=== PATIENT | male | born 1950 | race Hispanic/Latino ===

== ENCOUNTER 2018-09-29 13:22 | Inpatient (IN) | payer MEDICARE, SELFPAY ==
[2018-09-29 13:47] LABS: #Eosinphils 0.2 thou/uL (0.0-0.7); #Lymphocytes 1.3 thou/uL (1.20-3.40); #Monocytes 0.4 thou/uL (0.11-0.59); #Neutrophils 5.8 thou/uL (1.40-6.50); %Basophils 0.2 % (0.0-1.0); %Eosinophils 2.8 % (0.0-10.0); %Lymphocytes 16.8 % (21.0-51.0); %Monocytes 5.7 % (0.0-10.0); %Neutrophils 74.5 % (42.0-75.0); Mean Corpuscular Hemoglobin 28.7 pg (27.0-31.0); Mean Corpuscular Volume 87.1 fL (78.0-98.0); Mean Platelet Volume 8.1 fL (7.4-10.4); Platelet Count 304 thou/uL (130-400); Red Blood Cell (RBC) Count 4.89 mill/uL (4.70-6.10); White Blood Cell (WBC) Count 7.8 thou/uL (4.8-10.8)
[2018-09-29 14:05] LABS: ALT (SGPT) 16 U/L (8-55); AST (SGOT) 16 U/L (5-34); Albumin 3.7 g/dL (3.4-4.8); Alkaline Phosphatase 133 U/L (40-150); Anion Gap 11 mmol/L (10-20); BUN (Urea Nitrogen) 14 mg/dL (8.4-25.7); Bilirubin, Total 0.4 mg/dL (0.2-1.2); CK (CPK) 154 U/L (30-200); Calc. Creatinine Clearance 0 mL/min (70-130); Calcium 8.7 mg/dL (7.8-10.44); Carbon Dioxide 25 mmol/L (23-31); Chloride 101 mmol/L (98-107); Estimated GFR-MDRD 88; Globulin 3.8 g/dL (2.4-3.5); Glucose 272 mg/dL (80-115); Potassium 4.4 mmol/L (3.5-5.1); Protein, Total 7.5 g/dL (5.8-8.1); Sodium 133 mmol/L (136-145)
[2018-09-29] MEDS ORDERED: Metoclopramide HCl 10 MG/2 ML VIAL ONE (14:11)
--- NOTE | 2018-09-29 14:46 | RAD ---
PORTABLE CHEST ONE VIEW: Date: 09-29-18 Time: 2:08 p.m. History: Headache, vomiting. FINDINGS/IMPRESSION: The heart size is borderline. Mild infiltrates are seen in the lung bases which may be acute or chron ic. No lobar consolidation, pneumothoraces, or large effusions are seen. POS: [facility]
--- NOTE | 2018-09-29 15:12 | CT ---
CT BRAIN WITHOUT CONTRAST: History: Dizziness. Lightheadedness, nausea, vomiting. FINDINGS: There are no previous exams for comparison. No evidence of infarct, hemorrhage, midline shift, or abn ormal extraaxial fluid collections are seen. The ventricular size is appropriate and the basal cister ns patent. The bony calvarium is intact. There is extensive mucosal disease in the left maxillary sin us. IMPRESSION: No CT evidence of acute intracranial process. POS: [facility]
[2018-09-29] MEDS ORDERED: Acetaminophen 325 MG TAB PO PRN (20:12)
[2018-09-29] MEDS ORDERED: Zolpidem Tartrate 5 MG TAB PO PRN (20:12)
[2018-09-29] MEDS ORDERED: Fioricet 325/50/40 mg Tablet PO PRN (20:16)
--- NOTE | 2018-09-29 20:30 | HP ---
ADMITTING COMPLAINT: Headache. HISTORY OF PRESENT ILLNESS: This is a 68-year-old male, who states that he was having headaches about a week ago. The patient denies any other associated symptoms or any alleviating or aggravating factors. The patient states that the headache is pulsatile and throbbing in nature, about 8/10 at worst, currently is 2/10. The patient states that he was sleeping comfortably in bed until I walked into the room. The patient states that otherwise he does not drink or smoke. No other complaints or medical history per the patient, apart from hypertension. The patient states that he has not had a good followup with his primary care physician either. The patient states that, however, he did have a cervical spinal fusion surgery done in C6-C7, but cannot remember exactly when that was done. The patient is seen and examined in the ER. No family at bedside. All questions answered. ALLERGIES: NO KNOWN DRUG ALLERGIES. HOME MEDICATIONS: See MAR. REVIEW OF SYSTEMS: All systems reviewed, pertinent positives in HPI, otherwise negative. FAMILY HISTORY: Of diabetes and hypertension. SOCIAL HISTORY: Nondrinker, nonsmoker. PHYSICAL EXAMINATION: VITAL SIGNS: Blood pressure is 120/80, heart rate of 85, respiratory rate 18, temperature 98, and O2 saturations 100% on room air. GENERAL: The patient lying in bed comfortably, sleeping, in no acute distress. HEENT: Pupils are equal, round, and reactive to light and accommodation. Extraocular muscles intact. CARDIOVASCULAR: Regular rate and rhythm. S1 and S2. No murmurs, rubs, or gallops appreciated. LUNGS: Reveals clear to auscultation bilaterally. No respiratory distress. No increase in AP diameter. ABDOMEN: Reveals positive bowel sounds. Soft, nontender, nondistended. EXTREMITIES: 2+ peripheral pulses noted. No loss of motor or sensory function. LABORATORY DATA: CBC is within normal limits. Basic metabolic panel is within normal limits, albeit, sodium of 133. The patient had a brain CT done in the ER, which showed no acute intracranial process. The patient also had a chest x-ray done in the ER, which showed no acute cardiopulmonary process, possible chronic infiltrates, however, unlikely. ASSESSMENT: 1. Hypertension. 2. Headache. PLAN: 1. Admit to observation. 2. Fioricet p.r.n. headache. 3. We will get an MRI of the brain. 4. If labs normal in the morning and MRI negative, can likely discharge with Fioricet at point in time of discharge. 5. Follow up with Neurosurgery and PCP within 1 week. Case and plan were discussed with the patient at length. He understood and agreed to this plan. Job ID: [id number]
--- NOTE | 2018-09-29 20:37 | PDOC.EVN ---
Event Note - Event Note Event Note: H&P [id number]
[2018-09-29] MEDS ORDERED: Ondansetron PF 4 MG/2 ML Vial ONE (21:01)
[2018-09-29] MEDS ORDERED: hydrALAZINE 20 MG/ML VIAL ONE (21:27)
[2018-09-29] MEDS ORDERED: HumaLOG 300 UNITS/3 ML VIAL SC PRN (21:32)
[2018-09-29] MEDS ORDERED: Dextrose 50% Abboject 50 ML SYRINGE SLOW IVP PRN (21:32)
[2018-09-29] MEDS ORDERED: Dextrose 5% in Water 1,000 ML IV PRN (21:32)
[2018-09-30 00:24] VITALS: BMI 27.2
[2018-09-30] MEDS: Heparin 5,000 UNITS/ML VIAL SC SCH ×3 (01:52→21:40)
[2018-09-30 06:25] LABS: #Basophils 0.1 thou/uL (0.0-0.2); #Eosinphils 0.1 thou/uL (0.0-0.7); #Lymphocytes 1.7 thou/uL (1.20-3.40); #Monocytes 0.6 thou/uL (0.11-0.59); #Neutrophils 7.3 thou/uL (1.40-6.50); %Basophils 0.6 % (0.0-1.0); %Eosinophils 1.1 % (0.0-10.0); %Lymphocytes 17.1 % (21.0-51.0); %Monocytes 5.9 % (0.0-10.0); %Neutrophils 75.3 % (42.0-75.0); Hemoglobin 13.7 g/dL (14.0-18.0); Mean Corpuscular HGB CONC 32.8 g/dL (32.0-36.0); Mean Corpuscular Volume 88.4 fL (78.0-98.0); Mean Platelet Volume 8.2 fL (7.4-10.4); Platelet Count 313 thou/uL (130-400); RBC Distribution Width 13.1 % (11.5-14.5); Red Blood Cell (RBC) Count 4.72 mill/uL (4.70-6.10); White Blood Cell (WBC) Count 9.7 thou/uL (4.8-10.8)
[2018-09-30] MEDS: HumaLOG 300 UNITS/3 ML VIAL SC PRN ×3 (06:34→17:15)
[2018-09-30 07:21] LABS: Anion Gap 13 mmol/L (10-20); BUN (Urea Nitrogen) 14 mg/dL (8.4-25.7); Calc. Creatinine Clearance 80 mL/min (70-130); Calcium 8.8 mg/dL (7.8-10.44); Carbon Dioxide 23 mmol/L (23-31); Chloride 102 mmol/L (98-107); Estimated GFR-MDRD 74; Glucose 216 mg/dL (80-115); Potassium 4.2 mmol/L (3.5-5.1); Sodium 134 mmol/L (136-145)
[2018-09-30] MEDS ORDERED: Prevnar 13-Val Conj/PF 0.5 ML SYRINGE IM ONE (09:00)
[2018-09-30] MEDS ORDERED: hydrALAZINE 10 MG TAB PO SCH (13:15)
[2018-09-30] MEDS ORDERED: Lorazepam 0.5 MG TAB PO SCH (13:15)
[2018-09-30] MEDS: hydrALAZINE 20 MG/ML VIAL SLOW IVP PRN ×2 (17:15→21:41)
[2018-09-30] MEDS ORDERED: Lisinopril 10 MG TAB PO SCH (18:00)
--- NOTE | 2018-09-30 18:06 | PDOC.PN ---
- Subjective Encounter Start Date: 09/30/18 Encounter Start Time: 18:00 Subjective: Patient states he became very anxious when going down for MRI. -: States he has had them in the past with previous neck injury. -: Would like to hold off until tomorrow. At present he complains of pain behind right eye, 3/10 in severity. No blurred or loss of vision. No nausea/vomiting. Denies any chest pain or sob. 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 He turned to the left to look for traffic, felt pain in his neck and immediately experienced dizziness. He pulled over and still felt unsteady. An ambulance was called by a international first officer. While in the ER yesterday he describes having dizziness and unable to walk to the bathroom. He tried to call for help and ended up urinating on himself due to no longer being able to wait and hold his urine. States he had been waiting for help for quite some time. He was disoriented and unable to find the call button. No further episodes. Today has been able to walk and stand without trouble. Reports having issues with diabetes and hypertension in the past but does not follow regularly with a PCP. Previously on Lisinopril many years ago but eventually ran out and never sought refills or follow-up. Has never been on medication for his diabetes. Reports having chronic issues with his fingernails and toenails. Never treated. - Objective Resuscitation Status - Order Detail: 09/29/18 20:12 Resuscitation Status Routine Resuscitation Status: FULL: Full Resuscitation Discussed with: patient Vital Signs & Weight: Vital Signs (12 hours) Temp Pulse Resp BP BP Pulse Ox 09/30/18 17:15 79 193/91 H 09/30/18 16:05 97.2 F L 79 18 193/91 H 95 09/30/18 14:15 78 200/93 H 09/30/18 14:14 78 200/93 H 09/30/18 11:30 97.7 F 89 18 178/88 H 98 09/30/18 08:25 78 174/87 H 09/30/18 08:15 97.8 F 80 18 171/81 H 98 Weight Weight 174 lb I&O: 09/29/18 09/30/18 10/01/18 06:59 06:59 06:59 Intake Total 360 240 Balance 360 240 Result Diagrams: 09/30/18 05:50 09/30/18 05:50 Additional Labs: Accuchecks 09/30/18 09/30/18 09/30/18 17:00 10:53 06:09 POC Glucose 227 H 237 H 225 H 09/30/18 00:16 POC Glucose 211 H Phys Exam - Physical Examination Constitutional: NAD HEENT: PERRLA, moist MMs, oral pharynx no lesions Neck: supple Limited ROM due to previous cspine fusion. Nontender. Respiratory: no wheezing, no rales, no rhonchi, clear to auscultation bilateral Cardiovascular: RRR Gastrointestinal: soft, non-tender, no distention, positive bowel sounds Musculoskeletal: no edema Neurological: normal sensation, moves all 4 limbs Psychiatric: normal affect, A&O x 3 Deviation from normal: nail dysplasia involving fingernails and toenails. Dx/Plan (1) Hypertensive urgency Code(s): I16.0 - HYPERTENSIVE URGENCY Status: Acute Plan: Monitor BP. Hydralazine 10 mg IV Q4H PRN. (2) Hypertension, uncontrolled Code(s): I10 - ESSENTIAL (PRIMARY) HYPERTENSION Status: Chronic Plan: Uncontrolled due to non-compliance. Monitor BP. Resume Lisinopril. (3) Diabetes Code(s): E11.9 - TYPE 2 DIABETES MELLITUS WITHOUT COMPLICATIONS Status: Chronic (4) Dizziness Code(s): R42 - DIZZINESS AND GIDDINESS Status: Acute Plan: Resolved. Unable to have MRI brain due to anxiety. Re-attempt in the morning, premedicate with ativan 1 mg PO. Add-on MRI C-spine due to neck pain that preceeded symptoms (hx of neck surgery/ injury). - Plan cont current plan of care Discussed with Dr. Garcia who agrees with plan as above. * .
[2018-09-30 18:39] LABS: Bilirubin Negative (Negative); Blood, Urine Negative (Negative); Clarity CLEAR (Clear); Glucose, Urine (Dipstick) 100 mg/dL (Negative); Leukocyte Negative (Negative); Nitrite Negative (Negative); Protein, Urine (Dipstick) Negative (Neg-Trace); Specific Gravity, Urine 1.007 (1.002-1.036); pH, Urine 6.5 (5.0-9.0)
[2018-09-30 18:46] LABS: Bacteria/HPF None Seen HPF (None Seen); Hyaline Casts/LPF 0-3 HYALINE CAST LPF (0-3 Hyaline); RBC/HPF 0-3 HPF (0-3); Squamous Epithelial None Seen HPF (0-3); WBC/HPF None Seen HPF (0-3)
[2018-09-30 18:47] LABS: Urine Culture Reflex No No
[2018-09-30] MEDS: Ondansetron PF 4 MG/2 ML Vial IVP PRN (21:41)
[2018-10-01 05:42] LABS: Hemoglobin A1c 8.2 % (4.0-6.0)
[2018-10-01 05:45] LABS: #Eosinphils 0.1 thou/uL (0.0-0.7); #Lymphocytes 1.4 thou/uL (1.20-3.40); #Monocytes 0.6 thou/uL (0.11-0.59); #Neutrophils 6.8 thou/uL (1.40-6.50); %Basophils 0.4 % (0.0-1.0); %Eosinophils 1.6 % (0.0-10.0); %Lymphocytes 15.9 % (21.0-51.0); %Monocytes 6.9 % (0.0-10.0); %Neutrophils 75.3 % (42.0-75.0); Hemoglobin 12.9 g/dL (14.0-18.0); Mean Corpuscular HGB CONC 32.3 g/dL (32.0-36.0); Mean Corpuscular Hemoglobin 28.4 pg (27.0-31.0); Mean Corpuscular Volume 88.1 fL (78.0-98.0); Mean Platelet Volume 8.2 fL (7.4-10.4); Platelet Count 305 thou/uL (130-400); RBC Distribution Width 13.2 % (11.5-14.5); Red Blood Cell (RBC) Count 4.52 mill/uL (4.70-6.10)
[2018-10-01 06:02] LABS: Anion Gap 12 mmol/L (10-20); BUN (Urea Nitrogen) 19 mg/dL (8.4-25.7); Calc. Creatinine Clearance 58 mL/min (70-130); Calcium 8.7 mg/dL (7.8-10.44); Carbon Dioxide 24 mmol/L (23-31); Cardiac Risk 4.1 (Less than 4.5); Chloride 102 mmol/L (98-107); Cholesterol 114 mg/dl (< 200 Desired); Estimated GFR-MDRD 49; Glucose 200 mg/dL (80-115); HDL Cholesterol 28 mg/dL (>60 Neg Risk); LDL Cholesterol, Calculated 71 mg/dL; Potassium 4.5 mmol/L (3.5-5.1); Sodium 133 mmol/L (136-145); Triglycerides 75 mg/dL (Less than 150)
--- NOTE | 2018-10-01 07:00 | CT ---
CT HEAD WITHOUT CONTRAST: INDICATIONS: Dizziness. Fall with head injury, pain. FINDINGS: There is a stable sized ventricular system. Mild chronic ischemic disease of the cerebral white ani er is present. There is a punctate hyperdensity of the pontomedullary junction. Persistent opacity at the sphenoid sinus with associated periosteal thickening. There is retention cyst formation in th e left maxillary sinus. IMPRESSION: 1. No interval acute intracranial hemorrhage or mass effect. 2. Punctate hyperdensity of the brainstem. Recommend pre and post contrast brain MRI to further lupe luate. 3. Mild chronic ischemic disease of the cerebral white matter. POS: [facility]
[2018-10-01] MEDS ORDERED: Lorazepam 1 MG TAB PO SCH (07:30)
[2018-10-01] MEDS ORDERED: Lisinopril 10 MG TAB PO SCH (09:00)
[2018-10-01] MEDS: Sodium Chloride 0.9% 1,000 ML IV SCH (09:02)
[2018-10-01] MEDS: Heparin 5,000 UNITS/ML VIAL SC SCH ×2 (09:53→20:10)
[2018-10-01] MEDS ORDERED: ISOVUE-370 76%-LOCM 1 ML ONE (13:12)
[2018-10-01] MEDS ORDERED: Polyethylene Glycol 3350 17 GM Packet PO SCH (13:15)
--- NOTE | 2018-10-01 14:54 | PDOC.PN ---
- Subjective Encounter Start Date: 10/01/18 Encounter Start Time: 13:50 Subjective: Patient complaining of a frontal headache and nausea. -: Had a fall early hours this morning after getting up to the bathroom. -: He states it seemed to be triggered by turning his head to the left. He immediately felt dizzy and collapsed banging the left side of his head on the floor. He was able to get up to his knees and continued to feel dizzy. Fell back to the floor and dragged himself to the door to call for help. He denies any vomiting last night. Reports vomiting x 2 this morning. Has not had further dizziness. Heart Monitor indicates patient had a 2 min run of AV dissociation at 5:15am this morning. Repeat CT of his head showed no intracranial bleed but he did have a punctate hyperdensity in the brainstem. MRI was recommended which was already requested previously, however patient still unable to have it done due to anxiety (was given Ativan 1 mg). - Objective Resuscitation Status - Order Detail: 09/29/18 20:12 Resuscitation Status Routine Resuscitation Status: FULL: Full Resuscitation Discussed with: patient Vital Signs & Weight: Vital Signs (12 hours) Temp Pulse Resp BP BP BP Pulse Ox 10/01/18 11:30 97.8 F 87 16 155/67 H 100 10/01/18 07:55 97.8 F 86 16 141/79 H 96 10/01/18 05:21 99 F 105 H 22 H 209/100 H 97 10/01/18 05:07 98.5 F 83 18 121/56 L 116/57 L 129/65 97 Weight Weight 179 lb 3.2 oz I&O: 09/30/18 10/01/18 10/02/18 06:59 06:59 06:59 Intake Total 360 1880 Output Total 0 Balance 360 1880 Result Diagrams: 10/01/18 04:47 10/01/18 04:47 Additional Labs: Accuchecks 10/01/18 10/01/18 10/01/18 11:33 05:21 05:08 POC Glucose 197 H 179 H 184 H 09/30/18 09/30/18 22:18 17:00 POC Glucose 151 H 227 H Phys Exam - Physical Examination Constitutional: NAD HEENT: PERRLA, sclera anicteric, oral pharynx no lesions bilateral drooping eyelids, chronic. Neck: no nodes, no JVD, supple limited ROM due to previous cspine fusion. Respiratory: no wheezing, no rales, no rhonchi, clear to auscultation bilateral Cardiovascular: RRR Gastrointestinal: soft, non-tender, no distention, positive bowel sounds Musculoskeletal: no edema, pulses present Neurological: normal sensation, moves all 4 limbs Psychiatric: normal affect, A&O x 3 Skin: no rash Deviation from normal: onycholysis of fingernails and toenails Dx/Plan (1) Hypertensive urgency Code(s): I16.0 - HYPERTENSIVE URGENCY Status: Acute (2) Hypertension, uncontrolled Code(s): I10 - ESSENTIAL (PRIMARY) HYPERTENSION Status: Chronic Plan: History of noncompliance. BP improved. Restarted on Lisinopril 10 mg daily, however renal function trending down. Have stopped and switched to Amlodipine 5 mg PO daily. Continue Hydralazine PRN. Monitor BP. (3) Diabetes Code(s): E11.9 - TYPE 2 DIABETES MELLITUS WITHOUT COMPLICATIONS Status: Chronic Qualifiers: Diabetes mellitus type: type 2 (4) Dizziness Code(s): R42 - DIZZINESS AND GIDDINESS Status: Acute Plan: Collapse early hours this morning. Monitor showed 2 min run of AV dissociation. Cardiology consult placed. Repeat CT head: punctate hyperdensity in brainstem. MRI recommended however patient refusing, unable to have it due to anxiety. Given ativan and still unable to go through with MRI. Will obtain CTA neck to evaluate for stenosis. (5) Constipation Code(s): K59.00 - CONSTIPATION, UNSPECIFIED Status: Acute Plan: Continue IVF Senna and Miralax for constipation. No signs of obstruction. Vomited twice this morning, has resolved. Tolerated lunch, passing flatus. - Plan cont current plan of care Discussed with Dr. Garcia who agrees with plan above. * . Review of Systems - Review of Systems Constitutional: weakness. negative: fever, chills, sweats, malaise Eyes: negative: Pain, Vision Change, Conjunctivae Inflammation, Eyelid Inflammation, Redness ENT: negative: Ear Pain, Ear Discharge, Nose Pain, Nose Discharge, Nose Congestion, Mouth Pain, Mouth Swelling, Throat Pain, Throat Swelling Respiratory: negative: Cough, Dry, Shortness of Breath, Hemoptysis, SOB with Excertion, Pleuritic Pain, Sputum, Wheezing Cardiovascular: light headedness. negative: chest pain, palpitations, orthopnea , paroxysmal nocturnal dyspnea, edema, other Gastrointestinal: Vomiting, Constipation (Flatus+, tolerating oral intake). negative: Nausea, Abdominal Pain, Diarrhea, Melena, Hematochezia, Other Musculoskeletal: negative: Neck Pain, Shoulder Pain, Arm Pain, Back Pain, Hand Pain, Leg Pain, Foot Pain Skin: Other (nail changes, onycholysis of finger and toe nails. ). negative: Rash, Lesions, Amanuel, Bruising Neurological: Weakness - Medications/Allergies Allergies/Adverse Reactions: Allergies Allergy/AdvReac Type Severity Reaction Status Date / Time No Known Allergies Allergy Verified 09/29/18 23:07 Medications: Current Medications Acetaminophen (Tylenol) 650 mg PO Q4H PRN PRN Reason: Headache/Fever/Mild Pain (1-3) Last Admin: 09/30/18 21:40 Dose: 650 mg Acetaminophen/Butalbital/Caffeine (Fioricet) 1 tab PO Q4H PRN PRN Reason: Headache Stop: 10/04/18 20:17 Amlodipine Besylate (Norvasc) 5 mg PO DAILY [facility] Dextrose/Water (Dextrose 50%) 25 gm SLOW IVP PRN PRN PRN Reason: Hypoglycemia Glucagon (Glucagon) 1 mg IM PRN PRN PRN Reason: Hypoglycemia Heparin Sodium (Porcine) (Heparin) 5,000 units SC BID [facility] Last Admin: 10/01/18 09:53 Dose: 5,000 units Hydralazine HCl (Apresoline) 10 mg SLOW IVP Q4H PRN PRN Reason: SBP GREATER THAN 160 Last Admin: 09/30/18 21:41 Dose: 10 mg Dextrose/Water (D5w) 1,000 mls @ 0 mls/hr IV .Q0M PRN PRN Reason: Hypoglycemia Sodium Chloride (Normal Saline 0.9%) 1,000 mls @ 75 mls/hr IV .[id number] [facility] Last Admin: 10/01/18 09:02 Dose: 1,000 mls Insulin Human Lispro (Humalog) 0 units SC .MILD SLIDING SCALE PRN PRN Reason: Mild Correctional Scale Last Admin: 09/30/18 17:15 Dose: 3 unit Insulin Human Lispro (Humalog) 0 units SC .BEDTIME SLIDING SC PRN PRN Reason: Bedtime Correctional Scale Ondansetron HCl (Zofran) 4 mg IVP Q6H PRN PRN Reason: Nausea/Vomiting Last Admin: 09/30/18 21:41 Dose: 4 mg Polyethylene Glycol (Miralax) 17 gm PO NOW [facility] Stop: 10/01/18 15:15 Last Admin: 10/01/18 13:41 Dose: 17 gm Senna (Senokot) 2 tab PO BID [facility] Sodium Chloride (Flush - Normal Saline) 10 ml IVF Q12HR [facility] Sodium Chloride (Flush - Normal Saline) 10 ml IVF PRN PRN PRN Reason: Saline Flush Zolpidem Tartrate (Ambien) 5 mg PO HSPRN PRN PRN Reason: Insomnia
--- NOTE | 2018-10-01 16:11 | CT ---
CT PULMONARY ENGIOGRAM WITH IV CONTRAST AND 3D POSTPROCESSING: HISTORY: Elevated D-dimer, syncope, and dizziness. FINDINGS: There is good contrast opacification of the pulmonary arterial vasculature without filling defects to suggest pulmonary embolism. The thoracic aorta is well opacified without aneurysmal dissection. Va scular calcifications including aorta and coronary arteries are present. No pleural or pericardial effusions are seen. No pneumothoraces, lobar consolidation, or lung masses are identified. There is a 7 mm nodule in the right lower lobe. Degenerative changes are present in the spine. High-density material in the gallbladder is suggestiv e of cholelithiasis. IMPRESSION: 1. No CT evidence of pulmonary embolism. 2. A 7 mm right lower lobe lung nodule. A followup CT scan of the chest is recommended in 3 months. 3. Probable cholelithiasis. CODE T CODE LN
[2018-10-01] MEDS: Senokot 8.6 MG TAB PO SCH (20:10)
--- NOTE | 2018-10-01 22:34 | CON ---
DATE OF CONSULTATION: 10/01/2018 REASON FOR CONSULTATION: Syncope. HISTORY OF PRESENT ILLNESS: Mr. Zazueta is a pleasant 68-year-old gentleman, who comes to the hospital for having headache. This had been worked up and no significant issue has been found. This morning, he was woken up at about 5:00 a.m. for vital signs. He had orthostatic vital signs at that time that were normal. Because he was already up at that time, he decided to go to the bathroom and about to walk into the toilet, he felt extremely lightheaded and collapsed to the ground. He did not really pass out, but he did feel very weak and lightheaded and could not get up from the floor. At the time on the monitor, it seemed like he was in either 2:1 AV block versus complete AV dissociation, but his heart rate was in the 70s at least if it was an escape rhythm. Cardiology is being consulted for further evaluation of this. Talking to Mr. Zazueta, he tells me that the lightheadedness that he felt when he collapsed earlier today, it is exactly the same as what he has been experiencing in the last few months. 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 He again had it when he was driving to [place] and he had a very straight stretch of road. He felt his lightheaded for about 45 minutes total. He did not stop his 18-li, but he just kept going , but he did not feel right and did not really pass out. Eventually, everything went back to normal. He states that at times he has been sitting down and feels the same lightheadedness and just closes his eyes and falls asleep, he is not sure if he actually passed out or he just fell asleep. PAST MEDICAL HISTORY: 1. Hypertension. 2. Type 2 diabetes. 3. Anxiety. PAST SURGICAL HISTORY: 1. Hiatal hernia. 2. C6-C7 spinal fusion. SOCIAL HISTORY: Denies alcohol or drug use. No tobacco use. ALLERGIES: NO KNOWN DRUG ALLERGIES. OUTPATIENT MEDICATIONS: None. FAMILY HISTORY: Noncontributory. REVIEW OF SYSTEMS: A 12-point review of systems was negative unless stated in the history of present illness. PHYSICAL EXAMINATION: VITAL SIGNS: Temperature 98.4, pulse 82, respiratory rate 18, saturating 95% on room air, and blood pressure 158/73. GENERAL: Awake, alert, and oriented x3, in no distress. HEENT: Normocephalic and atraumatic. NECK: Supple. LUNGS: Clear. CARDIOVASCULAR: S1 and S2. No S3 or S4. No murmurs. ABDOMEN: Soft. Positive bowel sounds. EXTREMITIES: No edema. SKIN: Warm and dry. LABORATORY DATA: Laboratory work was reviewed. CBC is unremarkable. Coags, D-dimer was high. Chemistry was unremarkable except for sodium of 133 and creatinine is 1.43, GFR of 49, glucose was high in the 180s. Hemoglobin A1c is 8.2. Triglycerides of 75, cholesterol 114, LDL of 71, and HDL of 28. TSH was 1.6. UA was unremarkable. DIAGNOSTIC DATA: CT of the brain was reviewed, mild chronic ischemic disease in the cerebral white matter. There is hyperdensity in the brainstem. MRI was recommended. CT of the chest showed no evidence of pulmonary embolism. There is a 7 mm right lower lobe lung nodule and probable cholelithiasis. ASSESSMENT: 1. Presyncope. 2. Poorly controlled diabetes. 3. Hypertension. PLAN: 1. 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 We did catch a rhythm on the monitor that looks to be either AV dissociation or a junctional rhythm that is faster then his sinus beats.His escape rhythm was in the 70s, which would go against him having a syncopal spell. Then again, he did not pass out completely, he just felt really lightheaded. 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 Will consult our electrophysiology partners to see what their opinion is as far as the rhythm that was found in his history and we will decide whether he is a candidate for pacemaker or not. 2. Further recommendations per Electrophysiology's consultation. We will follow. Job ID: [id number] MTDD
[2018-10-02] MEDS: Sodium Chloride 0.9% 1,000 ML IV SCH (04:17)
[2018-10-02 07:19] LABS: #Eosinphils 0.2 thou/uL (0.0-0.7); #Lymphocytes 1.5 thou/uL (1.20-3.40); #Monocytes 0.5 thou/uL (0.11-0.59); #Neutrophils 5.2 thou/uL (1.40-6.50); %Basophils 0.1 % (0.0-1.0); %Eosinophils 2.1 % (0.0-10.0); %Lymphocytes 20.2 % (21.0-51.0); %Monocytes 6.5 % (0.0-10.0); %Neutrophils 71.1 % (42.0-75.0); Hemoglobin 12.7 g/dL (14.0-18.0); Mean Corpuscular HGB CONC 33.5 g/dL (32.0-36.0); Mean Corpuscular Hemoglobin 29.6 pg (27.0-31.0); Mean Corpuscular Volume 88.4 fL (78.0-98.0); Mean Platelet Volume 7.9 fL (7.4-10.4); Platelet Count 274 thou/uL (130-400); RBC Distribution Width 13.4 % (11.5-14.5); Red Blood Cell (RBC) Count 4.29 mill/uL (4.70-6.10); White Blood Cell (WBC) Count 7.3 thou/uL (4.8-10.8)
[2018-10-02 07:26] LABS: Anion Gap 9 mmol/L (10-20); BUN (Urea Nitrogen) 21 mg/dL (8.4-25.7); Calc. Creatinine Clearance 71 mL/min (70-130); Calcium 8.3 mg/dL (7.8-10.44); Carbon Dioxide 24 mmol/L (23-31); Chloride 104 mmol/L (98-107); Estimated GFR-MDRD 62; Glucose 182 mg/dL (80-115); Potassium 4.1 mmol/L (3.5-5.1); Sodium 133 mmol/L (136-145)
[2018-10-02] MEDS ORDERED: Sodium Chloride 0.9% 1,000 ML IV SCH ×2 (08:46→13:56)
[2018-10-02] MEDS ORDERED: Amlodipine 5 MG TAB PO SCH (09:00)
[2018-10-02] MEDS: Heparin 5,000 UNITS/ML VIAL SC SCH ×2 (09:57→20:30)
[2018-10-02] MEDS: NIFEdipine XL 30 MG TAB PO SCH (09:57)
[2018-10-02] MEDS: Senokot 8.6 MG TAB PO SCH ×2 (09:57→20:32)
[2018-10-02] MEDS ORDERED: Ondansetron PF 4 MG/2 ML Vial ONE (12:58)
[2018-10-02] MEDS ORDERED: Glycopyrrolate 0.2 MG/ML 5 ML SYRINGE ONE (12:58)
[2018-10-02] MEDS ORDERED: PROPOFOL 200 MG/20 ML VIAL ONE (12:58)
[2018-10-02] MEDS ORDERED: Lisinopril 10 MG TAB PO SCH (14:00)
--- NOTE | 2018-10-02 14:00 | PDOC.PN ---
- Subjective Encounter Start Date: 10/02/18 Encounter Start Time: 13:58 Subjective: feels Ok.ready for pacemaker if needs to be done -: no dizziness,palpitations or chest pain - Objective Resuscitation Status - Order Detail: 09/29/18 20:12 Resuscitation Status Routine Resuscitation Status: FULL: Full Resuscitation Discussed with: patient KVNG Reviewed: Yes Vital Signs & Weight: Vital Signs (12 hours) Temp Pulse Resp BP BP BP Pulse Ox 10/02/18 13:08 97 195/91 H 171/82 H 188/90 H 10/02/18 12:37 93 183/85 H 10/02/18 11:11 97.7 F 76 20 196/83 H 96 10/02/18 07:55 98.1 F 77 16 182/86 H 97 Weight Weight 179 lb 3.2 oz I&O: 10/01/18 10/02/18 10/03/18 06:59 06:59 06:59 Intake Total 1880 1501 Output Total 0 Balance 1880 1501 Result Diagrams: 10/02/18 06:58 10/02/18 06:58 Additional Labs: Accuchecks 10/02/18 10/02/18 10/01/18 11:15 06:19 21:00 POC Glucose 139 H 190 H 144 H 10/01/18 17:41 POC Glucose 191 H Laboratory Tests 09/29/18 10/02/18 13:38 06:58 Calcium 8.3 B-Natriuretic Peptide 129.8 H Phys Exam - Physical Examination Constitutional: NAD HEENT: PERRLA, moist MMs, sclera anicteric, oral pharynx no lesions Neck: no nodes, no JVD, supple, full ROM Respiratory: no wheezing, no rales, no rhonchi, clear to auscultation bilateral Cardiovascular: RRR, no significant murmur, no rub Gastrointestinal: soft, non-tender, no distention, positive bowel sounds Musculoskeletal: no edema, pulses present Neurological: non-focal, normal sensation, moves all 4 limbs Psychiatric: normal affect, A&O x 3 Skin: no rash Dx/Plan (1) AV block Code(s): I44.30 - UNSPECIFIED ATRIOVENTRICULAR BLOCK Status: Acute (2) Hypertensive urgency Code(s): I16.0 - HYPERTENSIVE URGENCY Status: Acute (3) Diabetes Code(s): E11.9 - TYPE 2 DIABETES MELLITUS WITHOUT COMPLICATIONS Status: Chronic Qualifiers: Diabetes mellitus type: type 2 - Plan avoid any tavon blocking agents.no BB or CCB or clonidine -: add procardia in place of amlodipine. add SUGAR-I as renal Fx better -: EP eval today.PPM if recommended.NPO for now -: ECHO pending -: ISS w accuchecks. AM labs * . Review of Systems - Review of Systems Constitutional: weakness. negative: fever, chills, sweats, malaise, other ENT: negative: Ear Pain, Ear Discharge, Nose Pain, Nose Discharge, Nose Congestion, Mouth Pain, Mouth Swelling, Throat Pain, Throat Swelling, Other Respiratory: negative: Cough, Dry, Shortness of Breath, Hemoptysis, SOB with Excertion, Pleuritic Pain, Sputum, Wheezing Cardiovascular: negative: chest pain, palpitations, orthopnea, paroxysmal nocturnal dyspnea, edema, light headedness, other Gastrointestinal: negative: Nausea, Vomiting, Abdominal Pain, Diarrhea, Constipation, Melena, Hematochezia, Other Genitourinary: negative: Dysuria, Frequency, Incontinence, Hematuria, Retention , Other Musculoskeletal: negative: Neck Pain, Shoulder Pain, Arm Pain, Back Pain, Hand Pain, Leg Pain, Foot Pain, Other Neurological: negative: Weakness, Numbness, Incoordination, Change in Speech, Confusion, Seizures, Other - Medications/Allergies Allergies/Adverse Reactions: Allergies Allergy/AdvReac Type Severity Reaction Status Date / Time No Known Allergies Allergy Verified 09/29/18 23:07 Medications: Current Medications Acetaminophen (Tylenol) 650 mg PO Q4H PRN PRN Reason: Headache/Fever/Mild Pain (1-3) Last Admin: 09/30/18 21:40 Dose: 650 mg Acetaminophen/Butalbital/Caffeine (Fioricet) 1 tab PO Q4H PRN PRN Reason: Headache Stop: 10/04/18 20:17 Dextrose/Water (Dextrose 50%) 25 gm SLOW IVP PRN PRN PRN Reason: Hypoglycemia Glucagon (Glucagon) 1 mg IM PRN PRN PRN Reason: Hypoglycemia Heparin Sodium (Porcine) (Heparin) 5,000 units SC BID CANDIDO Last Admin: 10/02/18 09:57 Dose: 5,000 units Hydralazine HCl (Apresoline) 10 mg SLOW IVP Q4H PRN PRN Reason: SBP GREATER THAN 160 Last Admin: 09/30/18 21:41 Dose: 10 mg Dextrose/Water (D5w) 1,000 mls @ 0 mls/hr IV .Q0M PRN PRN Reason: Hypoglycemia Sodium Chloride (Normal Saline 0.9%) 1,000 mls @ 50 mls/hr IV .Q20H CANDIOD Insulin Human Lispro (Humalog) 0 units SC .MILD SLIDING SCALE PRN PRN Reason: Mild Correctional Scale Last Admin: 09/30/18 17:15 Dose: 3 unit Insulin Human Lispro (Humalog) 0 units SC .BEDTIME SLIDING SC PRN PRN Reason: Bedtime Correctional Scale Lisinopril (Zestril) 10 mg PO 1400 [facility] Stop: 10/02/18 16:00 Lisinopril (Zestril) 10 mg PO DAILY [facility] Nifedipine (Procardia Xl) 30 mg PO DAILY [facility] Last Admin: 10/02/18 09:57 Dose: 30 mg Ondansetron HCl (Zofran) 4 mg IVP Q6H PRN PRN Reason: Nausea/Vomiting Last Admin: 09/30/18 21:41 Dose: 4 mg Senna (Senokot) 2 tab PO BID [facility] Last Admin: 10/02/18 09:57 Dose: Not Given Sodium Chloride (Flush - Normal Saline) 10 ml IVF Q12HR [facility] Last Admin: 10/02/18 09:57 Dose: Not Given Sodium Chloride (Flush - Normal Saline) 10 ml IVF PRN PRN PRN Reason: Saline Flush Zolpidem Tartrate (Ambien) 5 mg PO HSPRN PRN PRN Reason: Insomnia
--- NOTE | 2018-10-02 14:29 | CON ---
DATE OF CONSULTATION: REFERRING PHYSICIAN: Senthil Bunch MD. REASON FOR CONSULTATION: Syncope and collapse. HISTORY OF PRESENT ILLNESS: Mr. Zazueta is a pleasant 68-year-old gentleman who came to the hospital reporting a headache. No significant issue has been found with subsequent workup regarding that. He had orthostatic vital signs performed yesterday that were recorded and essentially negative for orthostasis. While he was already up, he decided to go to the bathroom and was about to walk into the restroom when he felt lightheaded and collapsed onto the ground. He hit his head. He felt extremely weak and was able to pull the assistance light, but was unable to even crawl to the doorway. 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 There was some consideration for a pacemaker given his arrhythmia issue and his passing out episode prompting the EP consultation. Mr. Zazueta is currently feeling well. He denies any prior episodes similar to this, any awareness of heart racing, palpitations, chest pain, pressure, syncope, near syncope, stroke, or stroke-like symptoms. 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 He said he fell off but did not pass out and eventually everything resolved. He was seated at that time. He does not have any additional cardiac concerns or complaints. REVIEW OF SYSTEMS: A 12-point review of systems is conducted, is negative except that listed above in the HPI. PAST MEDICAL HISTORY: Hypertension, type 2 diabetes, anxiety, hiatal hernia, and C6-C7 spinal fusion. SOCIAL HISTORY: . Denies alcohol or illicit drug use. Denies tobacco use. FAMILY HISTORY: Noncontributory. ALLERGIES: NO KNOWN DRUG ALLERGIES. HOME MEDICATIONS: No home medications. PHYSICAL EXAMINATION: VITAL SIGNS: Temperature 98.1, pulse 77, blood pressure 182/86, respirations 16, oxygen is 97% on room air. Orthostatic blood pressures on 10/01/2018, supine 129/65, sitting 121/56, standing 116/57. GENERAL: The patient is alert and oriented. Speech is clear. Affect is appropriate. He is in no apparent distress, sitting on the edge of the bed in an upright position. HEENT: He is normocephalic and atraumatic. His sclerae anicteric. His EOMs are intact. His oral mucosa is moist and pink with poor dentition. NECK: Supple without jugular venous distention. HEART: His heart rate is irregularly irregular with crisp S1 and S2. PMI is nondisplaced. LUNGS: Clear to auscultation bilaterally without wheezes, crackles, or rhonchi. Respirations are even and unlabored. Hepatojugular reflux is negative. ABDOMEN: Soft and nontender with positive bowel sounds throughout. EXTREMITIES: Warm and dry to touch without clubbing, cyanosis, or edema. NEUROLOGIC: Grossly intact and nonfocal and gait is stable, ambulating in room. LABORATORY DATA: WBC 7.3, hemoglobin 12.7, platelet count is 274, hematocrit is 38. Chemistry; potassium 4.1, sodium 133, creatinine 1.17, GFR 62, magnesium is 1.8. TSH is 1.68. ALT, AST, and alkaline phosphatase were within normal limits. Troponin was negative. BNP is 129. CT/CTA, angio of the chest was done with and without contrast. There is no evidence of pulmonary embolism. A 7 mm right lower lobe lung nodule was found with a recommended three-month followup exam and suggestive of cholelithiasis as well. Telemetry and EKG were all personally reviewed and largely reflect sinus rhythm. During his questionable syncope episode, the patient did appear going to an accelerated junctional escape rhythm. No clear AV dissociation was seen and no third-degree heart block. IMPRESSION: 1. Near syncope and collapse with associated and correlating accelerated junctional rhythm on tele. 2. First-degree atrioventricular block with left anterior fascicular block, conduction disease. 3. Possible orthostasis. PLAN AND RECOMMENDATIONS: I agree with the decision to check echocardiogram to assess structural integrity of the heart and left ventricular ejection fraction. At this point, the cause of his fall and near syncope is not entirely clear. While his orthostatic blood pressures were recorded were not significantly positive, it is unknown the amount of time between the checks and it is possible that blood pressure was just checked slightly orally and as he ambulated to the bathroom, his blood pressure dropped also provoking his arrhythmia issues. At this point, no AV dissociation or third-degree heart block is seen. The recommendation would be to recheck orthostatic blood pressures and avoid dehydration and supportive therapy for any associated orthostasis, but also to proceed with an electrophysiology study to assess his conduction system as he does have some conduction disease seen with a left anterior fascicular block and his accelerated junctional rhythm on tele. Pending the results of this EP study, we discussed his possible need for pacemaker versus implantable loop recorder for continued monitoring if less severe conduction disease is noted during EP study. If advanced conduction disease is seen during EP study and a pacemaker is indicated, the recommendation is to immediately proceed with dual-chamber pacemaker implantation. The patient voices understanding and agrees with this plan of care. We discussed risks, benefits, and alternatives. We will keep him n.p.o. and hopefully perform this procedure later today. Thank you for allowing us to participate in the care of this patient. Job ID: [id number]
[2018-10-02] MEDS ORDERED: Fentanyl 100 MCG/2 ML VIAL ONE (15:23)
[2018-10-02] MEDS ORDERED: Propofol 1,000 MG/100 ML VIAL IV ONE (15:24)
[2018-10-02] MEDS ORDERED: Midazolam HCl 2 mg/2 ml Vial ONE (15:24)
[2018-10-02] MEDS ORDERED: Scopolamine 1.5 mg/72 hour Patch ONE (15:45)
[2018-10-02] MEDS ORDERED: DOPamine 400 MG/D5W 250 ML 250 ML ONE (16:30)
[2018-10-02] MEDS ORDERED: Lidocaine 2% Jelly 5 ML TUBE ONE (17:01)
--- NOTE | 2018-10-02 17:02 | PDOC.CTH ---
Cardiology Progress Note - Subjective No more syncope. No more arrhythmias. - Objective Vital Signs Temp Pulse Resp BP BP BP Pulse Ox 10/02/18 13:08 97 195/91 H 171/82 H 188/90 H 10/02/18 12:37 93 183/85 H 10/02/18 11:11 97.7 F 76 20 196/83 H 96 10/02/18 07:55 98.1 F 77 16 182/86 H 97 Weight 179 lb 3.2 oz 10/01/18 10/02/18 10/03/18 06:59 06:59 06:59 Intake Total 1880 1501 Output Total 0 Balance 1880 1501 - Physical Examination General/Neuro: alert & oriented x3, NAD Neck: no JVD present Lungs: CTA, unlabored respirations Heart: RRR Abdomen: NT/ND Extremities: other: (no edema.) - Telemetry Telemetry Rhythm: NSR - Labs Result Diagrams: 10/02/18 06:58 10/02/18 06:58 Troponin/CKMB Troponin I Less than 0.010 ng/mL (< 0.028) 09/29/18 13:38 - Assessment/Plan 1. Near syncope. 2. Orthostatic hypotension PLAN: - EP consult, patient to have EP study today.
[2018-10-02] MEDS ORDERED: Lidocaine 1% w/Epinephrine 1:100K 20 ML VIAL ONE (17:07)
--- NOTE | 2018-10-02 17:52 | OP ---
DATE OF PROCEDURE: 10/02/2018 PROCEDURE PERFORMED: Loop recorder insertion. REFERRING PHYSICIAN: Senthil Bunch MD REASON FOR PROCEDURE: Mr. Zazueta is a 68-year-old man who had a dizzy near syncopal spells. He underwent an EP study demonstrating borderline HV and AV tavon function, abnormal sinus tavon function. He is here for further monitoring of these arrhythmias. Loop recorder insertion is planned. DESCRIPTION OF PROCEDURE: The patient's chest was prepped, draped, and anesthetized using subcutaneous lidocaine at the 4th intercostal space. An incision was made and with a standard tool kit, loop recorder was inserted. The patient tolerated the procedure well. No complications noted. CONCLUSION: Successful loop recorder placement. PLAN: Continue routine monitoring. Job ID: [id number]
--- NOTE | 2018-10-02 20:18 | OP ---
DATE OF PROCEDURE: 10/02/2018 PROCEDURE PERFORMED: Comprehensive electrophysiology. REFERRING PHYSICIAN: Senthil Bunch MD. REASON FOR PROCEDURE: Mr. 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 Telemetry revealed a syncopal episode recurred in the hospital demonstrating accelerated junctional rhythm. He has preserved LVEF. He is here for evaluation of his cardiac conduction and rule out inducible arrhtyhmia. DESCRIPTION OF PROCEDURE: The patient received propofol by Anesthesia specialist. After adequate level of sedation achieved, the right femoral venous area was prepped, draped, and anesthetized using subcutaneous lidocaine and a 6-Ugandan short sheath was introduced. Through this, an octapolar catheter was advanced to the right atrium, right ventricle, His bundle, and CS position. Pacing, mapping, and recording was performed at each location. Following findings were noted. Baseline cycle length 728 milliseconds sinus rhythm, OR 280 milliseconds, QRS 101 milliseconds, QTc 324 milliseconds, QT was normal. AH 290 milliseconds, HV 65 milliseconds to 69 milliseconds. Sinus node recovery time was measured to be 1484. Corrected sinus node recovery time was 760. AV Wenckebach cycle length was 560. Retrograde Wenckebach cycle length was not observed due to the VA block. AV tavon ERP was 600/460 milliseconds. No definite dual AV tavon physiology was present. Burst atrial pacing induced no sustained atrial arrhythmias. Following that, ventricular extrastimulation study was performed. Ventricular extrastimulation was performed with 600 [address] trains with up to 3 ventricular extrastimuli decremented to the refractory period, which was measured to be 400/200/180/180 milliseconds. With these ventricular extrastimuli, a short (up to 3.6sec) polymorphic ventricular tachycardia episode was seen, but was always self terminated. Dopamine was administered at 10 mcg per kg per minute and at that point, the ventricular extrastimulation protocol was repeated. No ventricular tachyarrhythmia was induced at this time. CONCLUSION: 1. Abnormal sinus tavon function. 2. Borderline atrioventricular tavon and His-Purkinje system function is seen. Hence, these measurements are during deep sedation, I would hold off implanting pacemaker based on the sinus tavon recovery time. On the other hand due to borderline numbers, further monitoring is reasonable. A loop recorder insertion is planned. Job ID: [id number] [facility]
[2018-10-02] MEDS: Ondansetron PF 4 MG/2 ML Vial IVP PRN (20:28)
--- NOTE | 2018-10-02 23:12 | CT ---
CT ANGIOGRAM OF THE NECK: 10/02/18 HISTORY: Dizziness. COMPARISON: None. TECHNIQUE: CT angiogram of the neck is performed in the axial plane. Three dimensional reformatted images are doyle bmitted for interpretation. FINDINGS: The visualized brain parenchyma and orbits are unremarkable. Mild mucosal disease of the visualized p aranasal sinuses. Adequate mastoid air cell aeration. Aerodigestive tract is patent. No mucosal abnormality. Fatty raphae of the tongue is preserved. There is evidence of periodontal disease with multiple dental caries as well as missing teeth. Symmetric a ttenuation of the parotid and submandibular glands. Symmetric attenuation of the sternocleidomastoid muscles. No evidence of lymphadenopathy by size criteria. Unremarkable thyroid gland. There are varying degrees of significant central canal stenosis and foraminal narrowing on the basis of degenerative change. Evaluation is limited by technique. There is evidence of postsurgical change with a fusion of the lower cervical spine posterior elements. Upper mediastinum and lung apices are unremarkable and unchanged from the previous CT angiogram of th e chest. CT ANGIOGRAM: Visualized aorta has a normal caliber. Common origin of both carotid arteries. RIGHT CAROTID: The right common carotid artery, carotid bifurcation and internal carotid artery have appropriate enh ancement and luminal diameter. Minimal atherosclerosis. No significant stenosis based upon NASCET cri teria. LEFT CAROTID: The left common carotid artery, carotid bifurcation and internal carotid artery have appropriate enha ncement and luminal diameter. Minimal atherosclerosis. No significant stenosis based upon NASCET crit eria. Codominant cervical vertebral arteries are patent throughout their course in the neck, except the erin gin. Bilateral vertebral artery origins suggest some significant disease with decreased enhancement. Both subclavian arteries are unremarkable. IMPRESSION: 1. No significant stenosis based upon NASCET criteria in either cervical carotid artery. 2. Origin of both vertebral artery suggest significant narrowing. Remainder of the cervical vert ebral arteries are patent. POS: [facility]
[2018-10-03 06:09] LABS: Anion Gap 10 mmol/L (10-20); BUN (Urea Nitrogen) 16 mg/dL (8.4-25.7); Calc. Creatinine Clearance 94 mL/min (70-130); Calcium 8.3 mg/dL (7.8-10.44); Carbon Dioxide 25 mmol/L (23-31); Chloride 105 mmol/L (98-107); Estimated GFR-MDRD 84; Glucose 100 mg/dL (80-115); Potassium 4.4 mmol/L (3.5-5.1); Sodium 136 mmol/L (136-145)
[2018-10-03] MEDS ORDERED: Lisinopril 10 MG TAB PO SCH (09:00)
[2018-10-03] MEDS: Senokot 8.6 MG TAB PO SCH (09:06)
[2018-10-03] MEDS: NIFEdipine XL 30 MG TAB PO SCH (09:14)
[2018-10-03] MEDS: Heparin 5,000 UNITS/ML VIAL SC SCH (09:14)
--- NOTE | 2018-10-03 09:49 | PDOC.CTH ---
Cardiology Progress Note - Subjective The pt seen and examined. No overnight events. No cardiac complaints. - Objective Vital Signs Temp Pulse Resp BP BP BP BP 10/03/18 09:14 83 142/72 H 10/03/18 07:41 98.4 F 83 20 142/72 H 142/71 H 154/77 H 10/03/18 04:00 98.0 F 81 12 129/71 10/03/18 00:00 97.9 F 86 12 121/54 L Pulse Ox 10/03/18 09:14 10/03/18 07:41 96 10/03/18 04:00 96 10/03/18 00:00 97 Weight 182 lb 10/02/18 10/03/18 10/04/18 06:59 06:59 06:59 Intake Total 1501 653 Output Total 325 Balance 1501 328 - Physical Examination General/Neuro: alert & oriented x3 Neck: no JVD present Lungs: CTA Heart: RRR Abdomen: soft Extremities: other: (No edema) - Telemetry Telemetry Rhythm: SR - Labs Result Diagrams: 10/02/18 06:58 10/03/18 04:49 Troponin/CKMB Troponin I Less than 0.010 ng/mL (< 0.028) 09/29/18 13:38 - Assessment/Plan 1. Near syncope episode with S/p LINQ placement on 10/02/2018 - orthostatic BP were stable; he has not had any near syncopal episodes. 2. Abnormal AV nodule with S/P LINQ placement by Dr Fleming - Possible PM placement with Abnormal arrhythemia by LINQ DM type 2 - managed by PCP MAR reviewed * From Cardiac standpoint, the pt is stable to d/c home. The pt will f/u with his PCP in [place], [place] within 1 wk and refer to [facility] in [facility] for LINQ and other Cardiovascular management. Pt. seen and eval. by me. I agree with the A/P by the SIGNAL OPERATOR LINGUIST. Linq site looks good. Chest clear. RRR. Agree with d/c. gjm Review of Systems - Review of Systems Constitutional: reports: no symptoms reported EENTM: reports: no symptoms reported Respiratory: reports: no symptoms reported Cardiac (ROS): reports: no symptoms reported ABD/GI: reports: no symptoms reported : reports: no symptoms reported Musculoskeletal: reports: no symptoms reported
[2018-10-03 11:29] VITALS: BP 115/78; TEMP 97.7
--- NOTE | 2018-10-03 14:15 | DIS ---
DATE OF ADMISSION: 09/29/2018 DATE OF DISCHARGE: 10/03/2018 CONDITION: At the time of discharge, stable and improved. PRIMARY CARE PHYSICIAN: Dr. Harris in [place], [place]. IN-HOUSE CONSULTATION: 1. Cardiology, Dr. Bunch and Dr. Santacruz. 2. Electrophysiology, Dr. Fleming. DISCHARGE DIAGNOSES: 1. 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 2. Hypertensive urgency, resolved. 3. Diabetes mellitus type 2. The patient does not like to take any medication. HOME MEDICATIONS: New medications. The patient has been started on: 1. Metformin XR 500 mg daily. 2. Nifedipine XL 30 mg daily. 3. Lisinopril 10 mg daily. PROCEDURES DONE IN THE HOSPITAL: 1. CT scan of the brain upon presentation on 09/29/2018, which is unremarkable for any acute changes. 2. Repeat CT scan of the brain on 10/01/2018, which shows punctate hyperdensity of the brainstem. MRI was recommended, but the patient was intolerant of the MRI due to claustrophobia despite multiple doses of Ativan, so it was discontinued. 3. CT angio of the thorax, which is negative for any pulmonary embolism, but show a 7 mm right lower lobe nodule. A followup CT scan is recommended in [address] angio of the neck, which did not show any significant stenosis in either carotid arteries. There is slight narrowing at the origin of both vertebral arteries, but remainder of the vertebral arteries are patent. 5. Transthoracic echocardiogram which shows preserved ejection fraction of 55% to 60% and unremarkable transthoracic echo. 6. EP study by Dr. Fleming on 10/02/2018, which showed abnormal sinus node function and borderline AV tavon and His-Purkinje system measurements. 7. Placement of a LINQ recorder. HISTORY OF PRESENTING ILLNESS: Mr. Zazueta is a 68-year-old male with known history of diabetes mellitus, who does not like to take any medications and history of hypertension and anxiety, who presented to the emergency room with complaints of headache. CT scan was unremarkable. Labs were within normal limits. EKG was unremarkable. He was admitted for further evaluation and care. Please see admission history and physical dictated by Dr. Russell on 09/29/2018. HOSPITAL COURSE: The patient shortly after admission: Exhibited hypertensive urgency and uncontrolled hypertension. He was started on appropriate medications which were adjusted. He had a fall while in the hospital due to near-syncope and a CT scan of the brain was repeated on 10/01/2018. During that episode of him having the syncopal episode or near syncope, he had a heart monitor indicating that he had a 2 minute run of AV dissociation. Immediately a CT scan of the head was done, which showed no intracranial bleed, but a punctate hyperdensity in the brainstem. MRI was ordered, but the patient could not stand because of anxiety and claustrophobia, so it had to be abandoned. Because of his symptoms associated with movement of the neck causing dizziness: A CT angio of the neck was done which did not show any stenosis or dissection of the vertebral arteries or carotid vasculature. Cardiology was consulted with regard to his AV dissociation and Dr. Bunch recommended a pacemaker placement. EP, Dr. Fleming was also consulted for similar reasons. Dr. Fleming saw the patient and did an EP study which showed some sinus tavon dysfunction, so he recommended a LINQ recorder before placement of the pacemaker. This was done yesterday successfully and as of this morning, the patient's blood pressure is much better and he has been cleared for discharge from Dr. Fleming and cardiology standpoint. An echocardiogram was also done which did not show any significant changes in the valvular structure or reduction in his ejection fraction. This morning, he was seen and examined and all questions were answered. His was at bedside. They do not want to follow up with physicians in [facility] as they live in [place], [place]. I have relied this information to Dr. Fleming who recommended doctor in [place], [place] who is an EP doctor, is being referred to Dr. Waller, electrophysiology in [place], [place]. Phone number was provided to them with the help of Dr. Fleming. I have once again encouraged them to make sure that they follow up with the primary care physician, Dr. Harris in [place], [place], as he needs cardiology referrals and EP referrals. They verbalized understanding. Medication compliance is advised. He is a commercial real estate paralegal and he is instructed very strongly not to drive up until his cardiac issues are sorted. He is also being started on metformin XR because his serum sugars have been running all over the place and his hemoglobin A1c is elevated to 8.2. His highest blood sugar in the hospital has been in the 200s range without any low blood sugar levels. Once again, the patient has longstanding history of noncompliance. He was seen and examined prior to discharge. PHYSICAL EXAMINATION: VITAL SIGNS: This morning, vital signs are stable. Heart rate 92, blood pressure 115/78, saturating 96% on room air. HEART: Rate and rhythm are regular. CHEST: Clear to auscultation bilaterally. Discharge plan was discussed with the patient and in detail and they verbalized understanding. TIME SPENT: Total time spent in the discharge of this patient 35 minutes. Job ID: [id number]
--- NOTE | 2018-10-03 16:50 | EKG ---
Test Reason : Blood Pressure : / mmHG Vent. Rate : 079 BPM Atrial Rate : 079 BPM P-R Int : 324 ms QRS Dur : 094 ms QT Int : 384 ms P-R-T Axes : 037 020 043 degrees QTc Int : 440 ms Sinus rhythm with 1st degree A-V block No STEMI Otherwise normal ECG Confirmed by CHRISTIAN ZUÑIGA DO ([id number]), assistant film editor LIZ GONZALEZ ([id number]) on 10/03/2018 4:50:36 PM Referred By: Confirmed By:CHRISTIAN ZUÑIGA DO
== END 2018-10-03 14:15 | disposition home or self-care (01) | DRG 274 ==
LOC: ERS 13:22 → OBSVTOIN 17:51 → ERHOLD 17:51 → 2SW 22:56
PROVIDERS: ADMIT Family Medicine; ATTEND Family Medicine
PROC: 02K83ZZ Map Conduction Mechanism, Percutaneous Approach (ICD-10-PCS; principal; 2018-10-02)
PROC: 0JH632Z Insertion of Monitoring Device into Chest Subcutaneous Tissue and Fascia, Percutaneous Approach (ICD-10-PCS; 2018-10-02)
PROC: 4A023FZ Measurement of Cardiac Rhythm, Percutaneous Approach (ICD-10-PCS; 2018-10-02)
PROC: 4A0234Z Measurement of Cardiac Electrical Activity, Percutaneous Approach (ICD-10-PCS; 2018-10-02)
DX: I44.2 Atrioventricular block, complete (principal); I44.4 Left anterior fascicular block; I16.0 Hypertensive urgency; I49.8 Other specified cardiac arrhythmias; I47.1 Supraventricular tachycardia; J44.9 Chronic obstructive pulmonary disease, unspecified; R42 Dizziness and giddiness; R51 Headache; I65.03 Occlusion and stenosis of bilateral vertebral arteries; E11.65 Type 2 diabetes mellitus with hyperglycemia; E78.5 Hyperlipidemia, unspecified; K59.00 Constipation, unspecified; R55 Syncope and collapse; R91.1 Solitary pulmonary nodule; F41.9 Anxiety disorder, unspecified
CPT/HCPCS: 33285; 36415; 36416; 70450; 70498; 70551; 71045; 71275; 76942; 80048; 80053; 80061; 81001; 82550; 83036; 83735; 83880; 84443; 84484; 85025; 85379; 90471; 90662; 90670; 93005; 93306; 93620; 93623; 96374; 96375; C1730; C1764; C1769; G0008; G0009; J0360; J1265; J1644; J2001; J2250; J2405; J2704; J2765; J3010; J3490; Q9966